=== PATIENT | male | born 1985 | race American Indian/Alaskan Native ===

== ENCOUNTER 2017-03-18 09:15 | Emergency (ER) | payer MEDICARE, MEDICAID ==
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
[2017-03-18] MEDS ORDERED: Ibuprofen 600 MG Tab PO ONE (09:25)
[2017-03-18 09:42] VITALS: BP 141/93
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
== END 2017-03-18 09:56 | disposition home or self-care (01) ==
LOC: DL.ED 09:15
DX: S60.221A Contusion of right hand, initial encounter (principal); E78.00 Pure hypercholesterolemia, unspecified; K21.9 Gastro-esophageal reflux disease without esophagitis; E11.9 Type 2 diabetes mellitus without complications; F17.200 Nicotine dependence, unspecified, uncomplicated; Z79.84 Long term (current) use of oral hypoglycemic drugs; Z79.899 Other long term (current) drug therapy; W22.8XXA Striking against or struck by other objects, initial encounter; Y99.0 Civilian activity done for income or pay
CPT/HCPCS: 73130; 99283; A9270

== ENCOUNTER 2017-03-25 18:19 | Emergency (ER) | payer MEDICARE, MEDICAID ==
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
[2017-03-25 18:53] LABS: CHLORIDE,CL 105 mmol/L (101-111); SODIUM,NA 139 mmol/L (135-145)
[2017-03-25 18:58] LABS: ACETAMINOPHEN < 10
== END 2017-03-25 18:56 ==
LOC: DL.ED 18:19
DX: R45.1 Restlessness and agitation (principal); Q86.0 Fetal alcohol syndrome (dysmorphic); F39 Unspecified mood [affective] disorder; E78.00 Pure hypercholesterolemia, unspecified; K21.9 Gastro-esophageal reflux disease without esophagitis; E11.9 Type 2 diabetes mellitus without complications; F17.210 Nicotine dependence, cigarettes, uncomplicated; Z79.899 Other long term (current) drug therapy
CPT/HCPCS: 36415; 80053; 85025; 99283; G0480; 99282